=== PATIENT | female | born 1985 | race Two or more races ===

== ENCOUNTER 2020-10-01 14:55 | Inpatient (IN) | payer OTHER ==
[2020-10-01] MEDS: ELECTROLYTE-148 SOLN 1,000 ML IV SCH ×2 (15:15→17:39)
[2020-10-01 15:43] VITALS: BMI 38.4
[2020-10-01 16:19] LABS: BASO % 0.2 % (0-2.0); EOS % 0.3 % (0-4.5); HEMATOCRIT 30.8 % (32.4-45.2); HEMOGLOBIN 9.6 GM/dL (10.7-15.3); LYMPH % 15.4 % (8-40); MCHC 31.2 g/dl (32.0-36.0); MEAN CELL VOLUME 76.7 fl (80-96); MEAN PLT VOLUME 11.9 fl (7.5-11.1); MONO % 4.9 % (3.8-10.2); NEUT % 79.2 % (42.8-82.8); PLATELET COUNT 268 K/MM3 (134-434); RBC 4.01 M/mm3 (3.60-5.2); RDW 15.7 % (11.6-15.6); WHITE BLOOD COUNT 15.7 K/mm3 (4.0-10.0)
[2020-10-01 16:24] LABS: PROTHROMBIN TIME (PATIENT) 12.3 SEC (9.7-13.0)
[2020-10-01 16:26] LABS: ACTIVATED PTT 25.6 SECONDS (25.2-36.5)
[2020-10-01] MEDS ORDERED: FENTANYL/BUPIVACAINE/NS/PF - PCEA - 50 ML DISP.SYRIN EP ONE ×2 (16:26→20:58)
[2020-10-01] MEDS ORDERED: PCA PUMP NR ONE ×2 (16:26→20:58)
[2020-10-01 16:40] LABS: CALCIUM 9.8 mg/dL (8.5-10.1)
[2020-10-01 16:41] LABS: BLOOD UREA NITROGEN 7.3 mg/dL (7-18)
[2020-10-01 16:44] LABS: CREATININE 0.5 mg/dL (0.55-1.3)
[2020-10-01] MEDS ORDERED: NALOXONE HCL 0.4 MG/ML VIAL IVPUSH PRN (17:23)
[2020-10-01] MEDS ORDERED: BUPIVACAINE HCL/PF 0.25% (2.5MG/ML) 10 ML VIAL ONE (17:26)
[2020-10-01] MEDS ORDERED: FENTANYL/BUPIVACAINE/NS/PF - PCEA - 50 ML DISP.SYRIN EP SCH (17:30)
[2020-10-01] MEDS ORDERED: OXYTOCIN 30 UNITS in 0.9% NS 30 UNIT/500 ML INFUS.BAG IVPB ONE (17:51)
[2020-10-01] MEDS ORDERED: ELECTROLYTE-148 SOLN 1,000 ML IV SCH (18:00)
[2020-10-01] MEDS ORDERED: OXYTOCIN 30 UNITS in 0.9% NS 30 UNIT/500 ML INFUS.BAG IVPB SCH (18:00)
[2020-10-01] MEDS ORDERED: OXYTOCIN 20 UNITS in 0.9% NS 20 UNIT/1,000 ML INFUS.BAG IV ONE (21:27)
[2020-10-01] MEDS ORDERED: LIDOCAINE HCL 1% PRESERVATIVE FREE - 30ML VIAL ONE (21:27)
[2020-10-01] MEDS ORDERED: BENZOCAINE 20% 57 GM BOTTLE TP PRN (22:18)
[2020-10-01] MEDS ORDERED: METHYLERGONOVINE MALEATE 0.2 MG/1 ML AMP IM PRN (22:18)
[2020-10-01] MEDS ORDERED: BENZOCAINE 28 GM HEMORRHOIDAL OINTMENT TP PRN (22:18)
[2020-10-01] MEDS ORDERED: WITCH HAZEL 50% (TUCKS) 40 PAD/JAR PAD TP PRN (22:18)
[2020-10-01] MEDS ORDERED: BISACODYL 10 MG SUPP.RECT RC PRN (22:18)
[2020-10-01] MEDS ORDERED: OXYTOCIN 20 UNITS in 0.9% NS 20 UNIT/1,000 ML INFUS.BAG IV SCH (22:30)
[2020-10-01] MEDS ORDERED: IBUPROFEN 600 MG TABLET (FP) PO ONE (23:23)
[2020-10-01] MEDS ORDERED: ACETAMINOPHEN 325 MG TABLET (FP) ONE (23:24)
[2020-10-01] MEDS: IBUPROFEN 600 MG TABLET (FP) PO PRN (23:30)
[2020-10-01] MEDS: ACETAMINOPHEN 325 MG TABLET (FP) PO PRN (23:30)
[2020-10-02] MEDS ORDERED: PCA PUMP NR ONE (00:12)
[2020-10-02] MEDS: IBUPROFEN 600 MG TABLET (FP) PO PRN ×5 (03:12→22:36)
[2020-10-02] MEDS: ACETAMINOPHEN 325 MG TABLET (FP) PO PRN ×5 (03:12→22:35)
[2020-10-02 08:41] LABS: BASO % 0.6 % (0-2.0); EOS % 0.4 % (0-4.5); HEMATOCRIT 25.6 % (32.4-45.2); HEMOGLOBIN 8.4 GM/dL (10.7-15.3); LYMPH % 14.5 % (8-40); MCHC 32.9 g/dl (32.0-36.0); MEAN PLT VOLUME 11.4 fl (7.5-11.1); MONO % 4.7 % (3.8-10.2); NEUT % 79.8 % (42.8-82.8); PLATELET COUNT 203 K/MM3 (134-434); RBC 3.37 M/mm3 (3.60-5.2); RDW 15.7 % (11.6-15.6); WHITE BLOOD COUNT 16.4 K/mm3 (4.0-10.0)
[2020-10-02] MEDS: PRENATAL VITAMINS W/ FOLIC ACID TABLET (FP) PO SCH (09:25)
[2020-10-02] MEDS ORDERED: SENNOSIDES/DOCUSATE COMBO (SENNA PLUS) TABLET (UD) PO PRN (22:00)
[2020-10-03] MEDS: ACETAMINOPHEN 325 MG TABLET (FP) PO PRN ×2 (05:21→10:01)
[2020-10-03] MEDS: IBUPROFEN 600 MG TABLET (FP) PO PRN ×2 (05:22→10:01)
[2020-10-03] MEDS: PRENATAL VITAMINS W/ FOLIC ACID TABLET (FP) PO SCH (10:02)
[2020-10-03 12:21] VITALS: BP 92/58; PULSE 4; TEMP 97.7
== END 2020-10-03 13:05 | disposition home or self-care (01) | DRG 807 ==
LOC: JLDR 14:55 → EDBD 14:55 → J3W 10-02 00:16
PROVIDERS: ADMIT Obstetrics & Gynecology; ATTEND Obstetrics & Gynecology
PROC: 10907ZC Drainage of Amniotic Fluid, Therapeutic from Products of Conception, Via Natural or Artificial Opening (ICD-10-PCS; principal; 2020-10-01)
PROC: 10E0XZZ Delivery of Products of Conception, External Approach (ICD-10-PCS; 2020-10-01)
DX: O80 Encounter for full-term uncomplicated delivery (principal); Z37.0 Single live birth; Z3A.39 39 weeks gestation of pregnancy; O99.214 Obesity complicating childbirth; E66.9 Obesity, unspecified; O36.63X0 Maternal care for excessive fetal growth, third trimester, not applicable or unspecified; O99.284 Endocrine, nutritional and metabolic diseases complicating childbirth; E28.2 Polycystic ovarian syndrome
CPT/HCPCS: 36415; 59409; 80048; 85025; 85610; 85730; 86780; 86850; 86900; 86901; C9803; U0003; U0005

== ENCOUNTER 2021-12-28 04:36 | Day surgery (SDC) | payer OTHER ==
[2021-12-24 16:53] VITALS: BMI 37.2
[2021-12-28] MEDS ORDERED: PROPOFOL 20 ML ONE (16:37)
[2021-12-28] MEDS ORDERED: MIDAZOLAM HCL 2 MG/2 ML SINGLE DOSE VIAL ONE ×2 (16:37→17:24)
[2021-12-28] MEDS ORDERED: ceFAZolin SODIUM 1 GM VIAL IVPB ONE (17:28)
[2021-12-28] MEDS ORDERED: DEXAMETHASONE SOD PHOSPHATE 4 MG/1 ML VIAL ONE (17:31)
[2021-12-28] MEDS ORDERED: KETOROLAC TROMETHAMINE 30 MG/1 ML VIAL ONE (17:31)
[2021-12-28] MEDS ORDERED: ceFAZolin SODIUM 1 GM VIAL ONE (17:31)
[2021-12-28 20:10] VITALS: BP 105/60; PULSE 60; TEMP 97.9
== END 2021-12-28 20:05 | disposition home or self-care (01) ==
LOC: JASU-SURG 04:36
PROVIDERS: ATTEND Obstetrics & Gynecology
PROC: 10D17ZZ Extraction of Products of Conception, Retained, Via Natural or Artificial Opening (ICD-10-PCS; principal; 2021-12-28 14:00)
DX: O02.1 Missed abortion (principal)
CPT/HCPCS: 88305-TC

== ENCOUNTER 2024-05-07 08:06 | Inpatient (IN) | payer OTHER ==
[2024-05-07] MEDS: ELECTROLYTE-148 SOLN 1,000 ML IV SCH (09:15)
[2024-05-07] MEDS ORDERED: OXYTOCIN 30 UNITS in 0.9% NS 30 UNIT/500 ML INFUS.BAG IVPB ONE (09:30)
[2024-05-07] MEDS: OXYTOCIN 30 UNITS in 0.9% NS 30 UNIT/500 ML INFUS.BAG IVPB SCH (09:30)
[2024-05-07 10:27] VITALS: BMI 38.0
[2024-05-07 10:42] LABS: BASO % 0.5 % (0-2.0); EOS % 0.6 % (0-4.5); HEMATOCRIT 29.2 % (32.4-45.2); HEMOGLOBIN 9.3 GM/dL (10.7-15.3); LYMPH % 18.4 % (8-40); MCH 23.1 pg (25.7-33.7); MCHC 31.8 g/dl (32.0-36.0); MEAN CELL VOLUME 72.4 fl (80-96); MEAN PLT VOLUME 10.6 fl (7.5-11.1); MONO % 6.2 % (3.8-10.2); NEUT % 74.3 % (42.8-82.8); PLATELET COUNT 269 10^3/uL (134-434); RBC 4.03 M/mm3 (3.60-5.2); RDW 17.4 % (11.6-15.6); WHITE BLOOD COUNT 12.5 K/mm3 (4.0-10.0)
[2024-05-07 10:51] LABS: INR 0.99 (0.83-1.09); PROTHROMBIN TIME (PATIENT) 11.4 SEC (9.7-13.0)
[2024-05-07 10:54] LABS: ACTIVATED PTT 26.6 SECONDS (25.2-36.5)
[2024-05-07 11:07] LABS: CALCIUM 9.3 mg/dL (8.5-10.1)
[2024-05-07 11:09] LABS: BLOOD UREA NITROGEN 8.9 mg/dL (7-18)
[2024-05-07 11:12] LABS: CREATININE 0.6 mg/dL (0.55-1.3)
[2024-05-07] MEDS ORDERED: BUPIVACAINE HCL/PF 0.25% (2.5MG/ML) 10 ML VIAL ONE ×3 (15:36→21:03)
[2024-05-07] MEDS ORDERED: FENTANYL CITRATE/PF 50 MCG/ML VIAL ONE ×3 (15:36→21:03)
[2024-05-07] MEDS ORDERED: FENTANYL/BUPIVACAINE/NS/PF - PCEA - 50 ML DISP.SYRIN EP ONE ×2 (15:37→20:44)
[2024-05-07] MEDS: FENTANYL/BUPIVACAINE/NS/PF - PCEA - 50 ML DISP.SYRIN EP SCH ×2 (15:50→19:08)
[2024-05-07] MEDS ORDERED: NALOXONE HCL 0.4 MG/ML VIAL IVPUSH PRN (17:10)
[2024-05-07] MEDS ORDERED: OXYTOCIN 20 UNITS in 0.9% NS 20 UNIT/1,000 ML INFUS.BAG IV ONE (21:19)
[2024-05-07] MEDS: OXYTOCIN 20 UNITS in 0.9% NS 20 UNIT/1,000 ML INFUS.BAG IV SCH (21:40)
[2024-05-07] MEDS ORDERED: BENZOCAINE 20% 57 GM BOTTLE TP PRN (21:46)
[2024-05-07] MEDS ORDERED: WITCH HAZEL 50% (TUCKS) 40 PAD/JAR PAD TP PRN (21:46)
[2024-05-07] MEDS ORDERED: METHYLERGONOVINE MALEATE 0.2 MG/1 ML AMP IM PRN (21:46)
[2024-05-07] MEDS ORDERED: oxyCODONE HCL 5 MG TABLET PO PRN (21:46)
[2024-05-07] MEDS ORDERED: BENZOCAINE 28 GM HEMORRHOIDAL OINTMENT TP PRN (21:46)
[2024-05-07] MEDS ORDERED: BISACODYL 10 MG SUPP.RECT RC PRN (21:46)
[2024-05-07] MEDS ORDERED: LIDO 2%/EPI 1:200000 PRESRVFRE (20 ML SDVIAL) ONE (23:11)
[2024-05-07 23:17] LABS: CORD HCO3 20.5 mmHg (20-29); CORD PCO2 39.5 mmHg (30-78); CORD pH 7.333 (7.14-7.44)
[2024-05-07 23:18] LABS: CORD HCO3 25.3 mmHg (20-29); CORD PCO2 71.4 mmHg (30-78); CORD pH 7.167 (7.14-7.44)
[2024-05-07] MEDS ORDERED: ACETAMINOPHEN 325 MG TABLET (FP) ONE (23:18)
[2024-05-07] MEDS: ACETAMINOPHEN 325 MG TABLET (FP) PO PRN (23:22)
[2024-05-08] MEDS: IBUPROFEN 600 MG TABLET (FP) PO PRN (01:54)
[2024-05-08 08:09] LABS: BASO % 0.3 % (0-2.0); EOS % 0.5 % (0-4.5); HEMATOCRIT 27.7 % (32.4-45.2); HEMOGLOBIN 8.7 GM/dL (10.7-15.3); LYMPH % 17.6 % (8-40); MCH 22.9 pg (25.7-33.7); MCHC 31.4 g/dl (32.0-36.0); MEAN PLT VOLUME 10.3 fl (7.5-11.1); MONO % 5.6 % (3.8-10.2); PLATELET COUNT 225 10^3/uL (134-434); RBC 3.79 M/mm3 (3.60-5.2); RDW 16.8 % (11.6-15.6); WHITE BLOOD COUNT 13.6 K/mm3 (4.0-10.0)
[2024-05-08] MEDS: PRENATAL VITAMINS W/ FOLIC ACID TABLET (FP) PO SCH (09:00)
[2024-05-08] MEDS ORDERED: SENNOSIDES/DOCUSATE COMBO (SENNA PLUS) TABLET (UD) PO PRN (22:00)
[2024-05-08 22:35] VITALS: TEMP 97.9
[2024-05-08] MEDS: FAMOTIDINE 20 MG TABLET PO ONE (23:54)
[2024-05-09 09:44] VITALS: BP 106/55; PULSE 74; RESP 17
== END 2024-05-09 13:20 | disposition home or self-care (01) | DRG 807 ==
LOC: JLDR 08:06 → J3W 05-08 00:45
PROVIDERS: ADMIT Obstetrics & Gynecology; ATTEND Obstetrics & Gynecology
PROC: 10E0XZZ Delivery of Products of Conception, External Approach (ICD-10-PCS; principal; 2024-05-07)
DX: O48.0 Post-term pregnancy (principal); Z37.0 Single live birth; Z3A.40 40 weeks gestation of pregnancy
CPT/HCPCS: 36415; 36600; 59409; 80048; 82803; 85025; 85610; 85730; 86780; 86803; 86850; 86900; 86901